=== PATIENT | male | born 1935 | race Caucasian/White ===

== ENCOUNTER 2018-01-11 20:10 | Emergency (ER) | payer OTHER ==
[~2018-01-11] VITALS: Ht 167.6 cm; Wt 72.6 kg
[~2018-01-11 20:10] MED LIST: ADULT LOW DOSE81 MG PO; ASPIR 8181 MG PO; AVELOX 400 MG400 MG PO; AZULFIDINE500 MG PO; CELEXA10 MG PO; CIPRO250 M1 PO; CIPRO500 MG PO; CIPROFLOXACIN500 M1 PO; COLACE100 MG PO; FAMOTIDINE OR; FLAGYL500 MG; FLAGYL500 MG PO; IRON325 PO; LIALDA1.2 GM PO; MINOCYCLINE HC100 M2 PO; PEPCID; PERCOCET 5-3251 EACH PO; PREDNISONE 10 M10 M1 PO; PREDNISONE 20 M20 MG PO; PRILOSEC 20 MG20 MG PO; TYLENOL PO; VITAMIN B-121000 MCG PO; ZOFRAN ODT4 MG PO; ZOFRAN4 MG PO; [UNRECOGNIZED DRUG - REMARK]
[2018-01-11] MEDS ORDERED: TRAZODONE HCL50 MG PO (20:25)
[2018-01-11] MEDS ORDERED: PREDNISONE 10 M10 MG PO (20:26)
[2018-01-11] MEDS ORDERED: FOLIC ACID1 MG (20:27)
[2018-01-11] MEDS ORDERED: DULCOLAX STOOL100 M1 (20:28)
[2018-01-11 21:14] VITALS: BP 147/70
== END 2018-01-11 21:15 | disposition home or self-care (01) ==
LOC: M.ERS 20:10
DX: I10 Essential (primary) hypertension (principal); G30.9 Alzheimer's disease, unspecified; Z88.0 Allergy status to penicillin

== ENCOUNTER 2018-03-16 15:27 | Emergency (ER) | payer OTHER ==
[~2018-03-16] VITALS: Ht 152.4 cm; Wt 63.5 kg
[~2018-03-16 15:27] MED LIST changes: +DULCOLAX STOOL100 M1; +FOLIC ACID1 MG; +PREDNISONE 10 M10 MG PO; +TRAZODONE HCL50 MG PO
[2018-03-16] MEDS ORDERED: IMODIUM A-D2 M1 PO (15:42)
[2018-03-16 16:30] LABS: ABSOLUTE LYMPHOCYTES 1.1 thou/uL (0.8-5.3); ABSOLUTE MONOCYTES 0.4 thou/uL (0.0-1.2); ABSOLUTE NEUTROPHILS 5.2 thou/uL (1.6-8.1); BASOPHILS 0.5 %; EOSINOPHILS 0.4 %; HEMATOCRIT 36.2 % (42.0-52.0); LYMPHOCYTES 16.4 %; MCH 33.4 pg (26.0-34.0); MCHC 33.3 g/dL (28.0-37.0); MCV 100.3 fL (80.0-100.0); MONOCYTES 5.7 %; MPV 7.1 fl. (7.2-11.1); NUCLEATED RBCS 0 /100WBC; PLATELET COUNT* 332 thou/uL (150-400); RBC 3.61 mil/uL (4.50-6.00); RDW-CV 13.6 % (10.5-14.5); WBC 6.8 thou/uL (4.0-11.0)
[2018-03-16 16:33] LABS: CALCIUM 8.8 mg/dL (8.5-10.1); CREATININE 1.3 mg/dL (0.6-1.3); POTASSIUM 3.5 mmol/L (3.5-5.1)
[2018-03-16 16:37] LABS: URINE BILIRUBIN NEGATIVE (Negative); URINE BLOOD NEGATIVE (Negative); URINE CLARITY CLEAR; URINE COLOR YELLOW; URINE GLUCOSE-RANDOM NEGATIVE (Negative); URINE KETONES NEGATIVE (Negative); URINE LEUKOCYTES NEGATIVE (Negative); URINE NITRITE NEGATIVE (Negative); URINE PROTEIN NEGATIVE (Negative); URINE SPECIFIC GRAVITY 1.025 (1.005-1.030); URINE UROBILINOGEN 0.2 E.U./dl (0.2-1.0)
[2018-03-16 16:38] LABS: ALBUMIN 3.5 g/dL (3.4-5.0); TOTAL BILIRUBIN 0.4 mg/dL (<0.1-1.0); TOTAL PROTEIN 6.8 g/dL (6.4-8.2)
[2018-03-16] MEDS ORDERED: LEVAQUIN 500 M500 M2 PO (17:02)
[2018-03-16 17:29] VITALS: BP 122/56
== END 2018-03-16 17:30 | disposition home or self-care (01) ==
LOC: M.ERS 15:27
PROVIDERS: Nurse Practitioner Family
DX: J20.9 Acute bronchitis, unspecified (principal); G30.9 Alzheimer's disease, unspecified; Z88.0 Allergy status to penicillin

== ENCOUNTER 2018-11-10 13:49 | Inpatient (IN) | payer OTHER ==
[~2018-11-10] VITALS: Ht 167.6 cm; Wt 64.3 kg
[~2018-11-10 13:49] MED LIST changes: +IMODIUM A-D2 M1 PO; +LEVAQUIN 500 M500 M2 PO
[2018-11-10 13:59] VITALS: BP 147/66
[2018-11-10] MEDS ORDERED: MELATONIN5 M1 PO (14:06)
[2018-11-10 14:57] LABS: ABSOLUTE EOSINOPHILS 0.1 thou/uL (0.0-0.7); ABSOLUTE LYMPHOCYTES 1.4 thou/uL (0.8-5.3); ABSOLUTE MONOCYTES 0.8 thou/uL (0.0-1.2); BASOPHILS 0.5 %; HEMATOCRIT 34.4 % (42.0-52.0); HEMOGLOBIN 11.5 gm/dL (14.0-18.0); LYMPHOCYTES 15.2 %; MCH 32.4 pg (26.0-34.0); MCHC 33.4 g/dL (28.0-37.0); MCV 96.9 fL (80.0-100.0); MONOCYTES 8.6 %; NUCLEATED RBCS 0 /100WBC; PLATELET COUNT* 322 thou/uL (150-400); POLYS 74.7 %; RBC 3.55 mil/uL (4.50-6.00); RDW-CV 13.2 % (10.5-14.5); WBC 9.3 thou/uL (4.0-11.0)
[2018-11-10 15:01] LABS: URINE BILIRUBIN NEGATIVE (Negative); URINE BLOOD 3+ (Negative); URINE CLARITY CLEAR; URINE COLOR YELLOW; URINE GLUCOSE-RANDOM NEGATIVE (Negative); URINE KETONES TRACE (Negative); URINE LEUKOCYTES-REFLEX NEGATIVE (Negative); URINE NITRITE-REFLEX NEGATIVE (Negative); URINE PROTEIN NEGATIVE (Negative); URINE SPECIFIC GRAVITY <= 1.005 (1.005-1.030); URINE UROBILINOGEN 0.2 E.U./dl (0.2-1.0)
[2018-11-10 15:13] LABS: ANION GAP 8 mmol/L (7-16); BUN 15 mg/dL (7-18); CALCIUM 8.7 mg/dL (8.5-10.1); CHLORIDE 104 mmol/L (98-107); CO2 27 mmol/L (21-32); CREATININE 1.3 mg/dL (0.6-1.3); GLUCOSE 98 mg/dL (70-99); POTASSIUM 3.4 mmol/L (3.5-5.1); SODIUM 139 mmol/L (136-145)
[2018-11-10 15:23] LABS: ALBUMIN 3.3 g/dL (3.4-5.0); ALKALINE PHOSPHATASE 71 U/L (46-116); LIPASE 60 U/L (73-393); SGOT 18 U/L (15-37); SGPT 20 U/L (30-65); TOTAL BILIRUBIN 0.9 mg/dL (<0.1-1.0); TOTAL PROTEIN 7.4 g/dL (6.4-8.2); TROPONIN-I LEVEL <0.06 ng/mL (<0.06)
[2018-11-10 15:34] LABS: CRYSTALS None Seen /LPF (None Seen); HYALINE CASTS 0-3 Few /LPF (None Seen); MUCUS None Seen strn/LPF (None Seen); SQUAMOUS 0-3 Few /LPF (0-3)
[2018-11-10 15:36] LABS: BACTERIA-REFLEX None Seen /HPF (None Seen); URINE RBC 3-10 Few /HPF (0-2); URINE WBC-REFLEX 0-5 Rare /HPF (0-5)
--- NOTE | 2018-11-10 16:02 | EKG ---
[place] [address] ELECTROCARDIOGRAM REPORT Name: BLADE SPRING Room: [facility]#: [id number] Admission: 11/10/18 Attend Phys: Discharge: Date of : 35 Report #: [id number] THIS REPORT FOR: //name// [facility] ED Test Date: 2018-11-10 Test Time: 14:08:43 Pat Name: BLADE SPRING Department: Room: Gender: M Clinical Account Specialist: CHAPIS : 1935 Requested By: Law Li Order Number: [id number] MD: Del Jeffers Measurements Intervals [place] Rate: 70 P: -23 MO: 156 QRS: -52 QRSD: 92 T: 19 QT: 380 QTc: 410 Interpretive Statements Sinus rhythm Atrial premature complex Probable left atrial enlargement left anterior fasicular block Compared to ECG 02/23/2017 08:14:40 Atrial premature complex(es) now present Sinus tachycardia no longer present Electronically Signed On 11-10-2018 16:02:25 CDT by Del Jeffers [email or web address] <ELECTRONICALLY SIGNED> By: Del Jeffers MD, [facility] 11/10/18 [id number] Del Jeffers MD, [facility] /EPI
[2018-11-10 16:53] VITALS: BP 147/63
[2018-11-10 17:15] VITALS: BP 135/69
[2018-11-10 22:00] VITALS: BP 167/62
[2018-11-11 00:01] VITALS: BP 158/78
[2018-11-11 04:48] LABS: HEMATOCRIT 33.8 % (42.0-52.0); HEMOGLOBIN 11.1 gm/dL (14.0-18.0)
[2018-11-11 07:38] VITALS: BP 159/71
[2018-11-11] MEDS ORDERED: FLAGYL500 M1 PO (12:26)
[2018-11-11] MEDS ORDERED: CIPRO500 MG PO (12:26)
[2018-11-11 13:11] VITALS: BP 159/71
--- NOTE | 2018-11-16 20:16 | CON ---
[address] [address] CONSULTATION Name: ALIZAANDRÉSBLADE David Room: [address]#: [id number] Admission: 11/10/18 Attend Phys: Margie Bowers Discharge: 11/11/18 Date of : 35 Report #: [id number] THIS REPORT FOR: //name// CC: Eddie Nieves DATE OF SERVICE: 11/11/2018 HISTORY OF PRESENT ILLNESS: This is a very pleasant 83-year-old gentleman with chronic ulcerative colitis and dementia who is presenting for hematochezia following colonoscopy. The patient had a colonoscopy performed on 11/10/2018. At that time, biopsies were taken from the rectum and colitis was noted in the left side of the colon. The patient's son reports that the patient passed several large blood clots with bright red blood in them. The patient is unfortunately unable to provide significant history because of his dementia. He denies any specific abdominal pain, rectal pain, pain on passing stool. The patient was diagnosed with chronic ulcerative colitis and is being treated with Remicade by Dr. Saab. PAST MEDICAL HISTORY: Significant for ulcerative colitis, Alzheimer's disease. PAST SURGICAL HISTORY: Hernia repair. SOCIAL HISTORY: There is no history of smoking, alcohol or recreational drug use. REVIEW OF SYSTEMS: Negative except for what was mentioned in the HPI. PHYSICAL EXAMINATION: VITAL SIGNS: Temperature 36.8, pulse rate 60, respirations 13, blood pressure 159/71. HEENT: Pupils are equal, round, reactive to light and accommodation. Mucous membranes are moist. There is no congestion. LUNGS: Clear to auscultation bilaterally. CARDIOVASCULAR: Rate is regular. S1, S2 present. ABDOMEN: Soft. There is no distention, guarding or rigidity. EXTREMITIES: Warm, well perfused. There is no edema. SKIN: Warm and dry. LABORATORY DATA: Baseline hemoglobin is 12. Hemoglobin on presentation was 11.5, hematocrit 34.4, WBC count 9.3, and platelet count of 322. Sodium 139, potassium 3.4, chloride 104, bicarbonate 27, BUN 15, creatinine 1.3, total bilirubin 0.9, AST 18, ALT 20, alkaline phosphatase 71. ASSESSMENT AND PLAN: Pleasant 83-year-old gentleman [place] [address] CONSULTATION Name: ALIZAANDRÉSBLADE L Room: [address]#: [id number] Admission: 11/10/18 Attend Phys: Margie Bowers Discharge: 11/11/18 Date of : 35 Report #: [id number] of dementia and ulcerative colitis presenting with rectal bleeding following colonoscopy. I suspect the rectal bleeding is related to biopsies were taken from the rectum. Since his hemoglobin is stable and he has had relatively few episodes over the last few hours. I would recommend continued monitoring. No endoscopic evaluation is recommended at this time. If repeat hemoglobin is stable, the patient is able to get discharged. The patient was seen and examined on 11/11/2018. This note reflects that day of service. <ELECTRONICALLY SIGNED> By: Sridhar Braun MD 11/16/182015 1053 Sridhar Braun MD /nt
== END 2018-11-11 13:50 | disposition home or self-care (01) | DRG 920 ==
LOC: M.ERS 13:49 → M.TBA-ER 16:11 → M.ORTHSURG 16:11
PROVIDERS: Emergency Medicine Emergency Medical Services; Internal Medicine Gastroenterology; ADMIT Internal Medicine
DX: K91.840 Postprocedural hemorrhage of a digestive system organ or structure following a digestive system procedure (principal); E44.1 Mild protein-calorie malnutrition; K57.30 Diverticulosis of large intestine without perforation or abscess without bleeding; G30.9 Alzheimer's disease, unspecified; Y83.8 Other surgical procedures as the cause of abnormal reaction of the patient, or of later complication, without mention of misadventure at the time of the procedure; F02.80 Dementia in other diseases classified elsewhere, unspecified severity, without behavioral disturbance, psychotic disturbance, mood disturbance, and anxiety; Z88.0 Allergy status to penicillin; Z79.899 Other long term (current) drug therapy

== ENCOUNTER 2018-11-12 09:40 | Emergency (ER) | payer OTHER ==
[~2018-11-12] VITALS: Ht 165.1 cm; Wt 63.5 kg
[~2018-11-12 09:40] MED LIST changes: +FLAGYL500 M1 PO; +MELATONIN5 M1 PO
[2018-11-12 10:36] LABS: URINE BILIRUBIN NEGATIVE (Negative); URINE BLOOD 3+ (Negative); URINE CLARITY CLEAR; URINE COLOR YELLOW; URINE GLUCOSE-RANDOM NEGATIVE (Negative); URINE KETONES TRACE (Negative); URINE LEUKOCYTES-REFLEX NEGATIVE (Negative); URINE NITRITE-REFLEX NEGATIVE (Negative); URINE PROTEIN NEGATIVE (Negative); URINE UROBILINOGEN 0.2 E.U./dl (0.2-1.0)
[2018-11-12 10:43] LABS: SQUAMOUS 0-3 Few /LPF (0-3)
[2018-11-12 10:44] LABS: URINE WBC-REFLEX 0-5 Rare /HPF (0-5)
[2018-11-12 10:49] LABS: AMORPHOUS URATES Few /LPF (None Seen); BACTERIA-REFLEX 1-9 Few /HPF (None Seen); CASTS None Seen /LPF (None Seen); CRYSTALS None Seen /LPF (None Seen); MUCUS None Seen strn/LPF (None Seen)
[2018-11-12 10:56] LABS: CALCIUM 9.4 mg/dL (8.5-10.1); POTASSIUM 3.9 mmol/L (3.5-5.1)
[2018-11-12 11:56] VITALS: BP 160/64
== END 2018-11-12 11:56 | disposition home or self-care (01) ==
LOC: M.ERS 09:40
PROVIDERS: Emergency Medicine Emergency Medical Services
DX: R33.9 Retention of urine, unspecified (principal); G30.9 Alzheimer's disease, unspecified; F02.80 Dementia in other diseases classified elsewhere, unspecified severity, without behavioral disturbance, psychotic disturbance, mood disturbance, and anxiety; Z88.0 Allergy status to penicillin